=== PATIENT | female | born 1985 | race Caucasian/White ===

== ENCOUNTER → 2019-09-09 22:02 | Observation (INO) ==
[2019-09-09 21:40] LABS: Bilirubin,Urine Negative (Negative); Blood,Urine Negative (Negative); Clarity,Urine Cloudy (Clear); Color,Urine Yellow (Yellow); Glucose,Urine (UA) Normal (Normal); Ketones,Urine Negative (Negative); Leukocyte Esterase,Urine Small (Negative); Nitrite,Urine Negative (Negative); Protein,Urine Negative (Neg-Trace); Specific Gravity,Urine 1.018 (1.010-1.025); Urobilinogen,Urine Normal (Normal)
[2019-09-09 21:43] LABS: Hyaline Casts,Urine None Seen per lpf (None-Few); Squamous Epithelial Cell,Urine Many per lpf (None-Few)
[2019-09-09 21:50] LABS: Amphetamine Screen,Urine Negative ng/mL (Cutoff=1000); Barbiturate Screen,Urine Negative ng/mL (Cutoff=200); Benzodiazepines Screen,Urine Negative ng/mL (Cutoff=200); Cannabinoid Screen,Urine Negative ng/mL (Cutoff = 50); Cocaine Screen,Urine Negative ng/mL (Cutoff= 300); Opiate Screen,Urine Negative ng/mL (Cutoff=300); Phencyclidine Screen,Urine Negative ng/mL (Cutoff=25)
[2019-09-09 22:01] LABS: Bacteria,Urine Few per hpf (None-Few); RBC,Urine 0-3 per hpf (0-3)
== END | disposition home or self-care (01) ==
LOC: 1NENULAB
PROVIDERS: ADMIT Advanced Practice Midwife; ATTEND Advanced Practice Midwife

== ENCOUNTER 2020-01-02 22:51 | Inpatient (IN) ==
[2020-01-02] MEDS ORDERED: Ondansetron 4 MG/2 ML VIAL IVP PRN (22:54)
[2020-01-02] MEDS ORDERED: Naloxone 0.4 MG/ML INJ IVP PRN (22:54)
[2020-01-02] MEDS ORDERED: *HR* FentaNYL (PF) 100 MCG/2 ML VIAL IVP PRN (22:54)
[2020-01-02] MEDS ORDERED: Lidocaine 1% 20 ML MDV INFILT PRN (22:54)
[2020-01-02] MEDS ORDERED: Famotidine 20 MG/2 ML VIAL IVP PRN (22:54)
[2020-01-02] MEDS ORDERED: miSOPROStoL 25 MCG TABLET PO PRN (22:54)
[2020-01-02] MEDS ORDERED: Metoclopramide 10 MG/2 ML VIAL IVP PRN (22:54)
[2020-01-02] MEDS ORDERED: Oxytocin 20 units/ LR 1000 mL 20 UNIT/1,000 ML BAG IVC SCH (23:00)
[2020-01-02 23:29] LABS: Basophils % 0.1 %; Eosinophils % 0.2 %; Hematocrit 34.1 % (35.3-44.9); Hemoglobin 11.5 g/dL (11.5-15.4); Immature Granulocytes % 0.5 % (0-4); Lymphocytes # 1.6 K/mcL (0.6-4.6); Lymphocytes % 18.3 %; Mean Corpuscular HGB Conc 33.7 g/dL (31.6-35.5); Mean Corpuscular Hemoglobin 30.8 pg (28.0-33.3); Mean Corpuscular Volume 91.4 fL (83.0-100.0); Mean Platelet Volume 11.3 fL (9.4-12.4); Monocytes # 0.5 K/mcL (0.0-1.3); Monocytes % 5.6 %; Neutrophils # 6.5 K/mcL (1.6-8.9); Platelet Count 267 K/mcL (140-400); Red Blood Count 3.73 M/mcL (3.82-4.97); Red Cell Distribution Width 13.6 % (11.5-14.5); Segmented Neutrophils % 75.3 %; White Blood Count 8.7 K/mcL (4.3-11.1)
[2020-01-02 23:40] LABS: Amphetamine Screen,Urine Negative ng/mL (Cutoff=1000); Barbiturate Screen,Urine Negative ng/mL (Cutoff=200); Benzodiazepines Screen,Urine Negative ng/mL (Cutoff=200); Cannabinoid Screen,Urine Negative ng/mL (Cutoff = 50); Cocaine Screen,Urine Negative ng/mL (Cutoff= 300); Opiate Screen,Urine Negative ng/mL (Cutoff=300); Phencyclidine Screen,Urine Negative ng/mL (Cutoff=25)
[2020-01-03] MEDS: Ringers Solution, Lactated 1,000 ML IVC SCH ×2 (02:03→16:58)
[2020-01-03] MEDS ORDERED: EPHEDrine 50 MG/ML VIAL IVP PRN (06:37)
[2020-01-03] MEDS ORDERED: Epidural Premix (fent/bupiv) 110 ML EP SCH (06:45)
[2020-01-03] MEDS ORDERED: Ropivacaine/PF 0.2% 20 ML VIAL ONE (14:49)
[2020-01-03] MEDS ORDERED: *HR* Ropivacaine/PF 0.5% 20 ML VIAL ONE (14:49)
[2020-01-03] MEDS ORDERED: Lidocaine/EPI 1:200k 2% PF 20 ML VIAL ONE (16:51)
[2020-01-03] MEDS ORDERED: Sodium Bicarbonate 50 MEQ/50 ML VIAL ONE (16:51)
[2020-01-03] MEDS ORDERED: *HR* FentaNYL (PF) 100 MCG/2 ML VIAL ONE (16:51)
[2020-01-03] MEDS ORDERED: Dexamethasone 4 MG/ML VIAL ONE (16:53)
[2020-01-03] MEDS ORDERED: Ondansetron 4 MG/2 ML VIAL ONE (16:53)
[2020-01-03] MEDS ORDERED: SODIUM CHLORIDE 0.9% IVPB ONE (16:55)
[2020-01-03] MEDS ORDERED: AZITHROMYCIN IVPB ONE (16:55)
[2020-01-03] MEDS ORDERED: CeFAZolin 2,000 MG/50 ML BAG IVPB ONE (16:55)
[2020-01-03] MEDS ORDERED: *HR* Oxytocin 10 UNIT/ML VIAL IM ONE ×2 (17:27→17:42)
[2020-01-03] MEDS ORDERED: Ketorolac 30 MG/ML VIAL ONE (17:42)
[2020-01-03] MEDS ORDERED: Acetaminophen IV 1,000 MG/100 ML INFUS..BTL ONE (17:49)
[2020-01-03] MEDS ORDERED: *HR* Morphine Sulfate/PF 10 MG/10 ML AMPUL ONE (17:53)
[2020-01-03] MEDS ORDERED: Oxytocin 20 units/ LR 1000 mL 20 UNIT/1,000 ML BAG IVC SCH (20:22)
[2020-01-03] MEDS ORDERED: Sennosides 8.6 MG TABLET PO PRN (20:22)
[2020-01-03] MEDS ORDERED: Metoclopramide 10 MG/2 ML VIAL IVP PRN (20:22)
[2020-01-03] MEDS ORDERED: Ondansetron 4 MG/2 ML VIAL IVP PRN (20:22)
[2020-01-03] MEDS ORDERED: Ibuprofen 600 MG TABLET PO PRN (20:22)
[2020-01-03] MEDS ORDERED: Simethicone 80 MG TAB.CHEW PO PRN (20:22)
[2020-01-03] MEDS: metroNIDAZOLE 500 MG TABLET PO SCH (22:39)
[2020-01-04] MEDS ORDERED: ceFAZolin 2,000 MG in 0.9 % Sodium Chloride 100 ML IVPB SCH
[2020-01-04 04:39] LABS: Basophils % 0.1 %; Hematocrit 28.2 % (35.3-44.9); Immature Granulocytes % 0.8 % (0-4); Lymphocytes # 0.7 K/mcL (0.6-4.6); Lymphocytes % 4.1 %; Mean Corpuscular Hemoglobin 30.8 pg (28.0-33.3); Mean Corpuscular Volume 93.4 fL (83.0-100.0); Mean Platelet Volume 11.4 fL (9.4-12.4); Monocytes # 0.5 K/mcL (0.0-1.3); Neutrophils # 16.6 K/mcL (1.6-8.9); Platelet Count 196 K/mcL (140-400); Red Blood Count 3.02 M/mcL (3.82-4.97); Red Cell Distribution Width 13.7 % (11.5-14.5)
[2020-01-04 04:45] LABS: Hemoglobin 9.3 g/dL (11.5-15.4)
[2020-01-04 08:18] VITALS: BP 105/63
[2020-01-04] MEDS ORDERED: Prenatal Vit/FA 1 EACH TABLET PO SCH (09:00)
[2020-01-04] MEDS: metroNIDAZOLE 500 MG TABLET PO SCH ×2 (11:04→16:07)
[2020-01-04] MEDS: *HR* OxyCODONE/APAP 5/325 TABLET PO PRN ×2 (13:08→17:51)
== END 2020-01-04 17:57 | disposition home or self-care (01) ==
LOC: 1NENULAB 22:51 → 1NENUOBS 01-03 20:52
PROVIDERS: ADMIT Obstetrics & Gynecology; ATTEND Obstetrics & Gynecology